=== PATIENT | female | born 1980 | race Caucasian/White ===

== ENCOUNTER 2017-09-17 14:33 | Emergency (ER) | payer MEDICAID ==
--- NOTE | 2017-09-17 14:56 | EDPHY ---
H & P Stated Complaint: DEPRESSION/SUICIDAL THOUGHTS/WANTS DETOX FROM BENZOS AND ETOH - Personal History LMP (Females 10-55): Over 28 Days Ago Current Tetanus/Diphtheria Vaccine: Yes Tetanus Vaccine Date: 2009 - Medical/Surgical History Hx Asthma: No Hx Chronic Respiratory Disease: No Hx Diabetes: No Hx Cardiac Disease: No Hx Renal Disease: No Hx Cirrhosis: No Hx Alcoholism: No Hx HIV/AIDS: No Hx Splenectomy or Spleen Trauma: No Other PMH: surgical- GALLBLADDER, TUBAL LIGATION, LEFT FOOT SURGERY, broke L patella 03/31 - Social History Smoking Status: Former smoker Time Seen by Provider: 09/17/17 14:52 Constitutional: Initial Vital Signs Temperature (C) 37 C 09/17/17 14:38 Heart Rate 102 H 09/17/17 14:38 Respiratory Rate 20 09/17/17 14:38 Blood Pressure 205/121 H 09/17/17 14:38 O2 Sat (%) 99 09/17/17 14:38 O2 Delivery Mode Room Air Allergies/Adverse Reactions: codeine [Codeine] Allergy (Mild, Verified 09/17/17 14:36) Itching Home Medications: Medication Instructions Recorded Effexor 09/17/17 METHADONE HCL 09/17/17 Oxycodone HCl 09/17/17 Xanax 09/17/17 Medical Decision Making ED Course/Re-evaluation: CHIEF COMPLAINT: Depression, medicine withdrawal, suicidal ideation HISTORY OF PRESENT ILLNESS: 37-year-old female who is a longstanding psychiatric history. She is on Effexor XR which she does not believe is helping her and she feels like she is in a deep depression. Additionally, she was on Xanax 1 mg 3 times a day but she has not taken any of that for about a week. She also stopped taking her oxycodone and her methadone. She does have a chronic pain diagnosis. She is brought here by family member because of her deep depression the fact that she thinks her meds are no longer functioning. REVIEW OF SYSTEMS: A 10 point review of systems was performed and is negative with the exception of the elements mentioned in the history of present illness. PHYSICAL EXAM: HR, BP, O2 Sat, RR. Temp noted General Appearance: Alert, well hydrated, appropriate, and non-toxic appearing. Head: Atraumatic without scalp tenderness or obvious injury Eyes: Pupils equal, round, reactive to light and accommodation, EOMI, no trauma , no injection. Ears: Clear bilaterally, no perforation, normal landmarks Nose: Atraumatic, no rhinorrhea, clear. Throat: There is no erythema or exudates, no lesions, normal tonsils, mucus membranes moist. Neck: Supple, 2+ carotid upstroke, nontender, no lymphadenopathy. Respiratory: No retractions, no distress, no wheezes, and no accessory muscle use. Lungs are clear to auscultation bilaterally. Cardiovascular: Regular rate and rhythm, no murmurs, rubs, or gallops. Bilateral carotid, radial, dorsalis pedis, and posterior tibial pulses intact. Good capillary refill all extremities. Gastrointestinal: Abdomen is soft, nontender, non-distended, no masses, no rebound, no guarding, no peritoneal signs. Musculoskeletal: Normal active ROM of all extremities, atraumatic. Neurological: Alert, appropriate, and interactive. The patient has normal DTRs and non-focal cranial nerves, motor, sensory, and cerebellar exam. Skin: No rashes, good turgor, no nodules on palpation. Past medical history: Depression, chronic pain, anxiety Past surgical history: Noncontributory Family history: Noncontributory Social history: Single, employed, does not abuse tobacco drugs or alcohol DIFFERENTIAL DIAGNOSIS: The differential diagnosis for the patient's depression included but was not limited to functional and major depression, situational depression, medication side effect, drugs, and alcohol abuse. MEDICAL DECISION MAKING: This patient has longstanding depression which has worsened acutely. She has also adjusting her own medicines. She somewhat anxious in there but I can't tell if that is because she is off of her benzodiazepines or she is just having underlying anxiety issues. I will give her a small dose of a benzo if she needs it but she does not right now. She states she has no specific suicidal plan however she has thoughts of . She came here voluntarily and would like her medicines to be adjusted and admitted if possible. Final disposition will be up to the psychiatric team of perform screening laboratory studies (Marcel Ruiz) 0322: This patient has been evaluated by mental health. They placed on M1 hold. They will look for dual diagnosis center for substance detox and depression. 0459AM: This patient is requesting something to sleep. She normally takes 10 mg of Ambien nightly. She has not had her Ambien in 2 days. She is requesting specifically Ambien. I have ordered her 10 mg p.o. Ambien. 0553AM: No acute events overnight. Patient provided Ambien for sleep. Patient has been evaluated. Looking for dual diagnosis center for placement. On M1 hold. Here for depression, benzo dependency and narcotic dependency. Patient signed over to Dr. Grove at 7:00 a.m. shift change. (Carlos Snider) 7:00 a.m.-I assumed care of this patient at shift change. She has a history of depression and polysubstance abuse. She is on an M1 hold and mental health is looking for inpatient disposition. 1:00 p.m.-this patient has been accepted to [facility] by Dr. Roland. (Daria Grove) - Data Points Laboratory Results: Laboratory Results 09/17/17 15:05 09/17/17 15:05 Medications Given: Zolpidem Tartrate (Ambien) 10 mg PO HS PRN PRN Reason: Sleep/Insomnia Stop: 03/17/18 04:58 Last Admin: 09/18/17 05:04 Dose: 10 mg Discontinued Medications Diphenhydramine HCl (Benadryl) 25 mg PO EDNOW ONE Stop: 09/17/17 23:32 Last Admin: 09/17/17 23:33 Dose: 25 mg Diphenhydramine HCl (Benadryl) 25 mg PO EDNOW ONE Stop: 09/18/17 03:23 Last Admin: 09/18/17 03:22 Dose: 25 mg Hydroxyzine HCl (Hydroxyzine Hcl) 25 mg PO EDNOW ONE Stop: 09/17/17 20:37 Last Admin: 09/17/17 20:55 Dose: 25 mg Departure - Departure Clinical Impression: Suicidal ideation, Severe major depression, Withdrawal from opioids Withdrawal from benzodiazepine Qualifiers: Complication of substance-induced condition: uncomplicated Qualified Code(s): F13.230 - Sedative, hypnotic or anxiolytic dependence with withdrawal, uncomplicated Condition: Fair Referrals: ALEXUS FENG [Other] - As per Instructions
[2017-09-17 15:15] LABS: PLATELET COUNT 228 10^3/uL (150-400)
[2017-09-17] MEDS ORDERED: hydrOXYzine HCL 25 MG TAB PO ONE (20:36)
[2017-09-17] MEDS ORDERED: diphenhydrAMINE 25 MG CAP PO ONE (23:31)
[2017-09-18] MEDS ORDERED: ONDANSETRON DISINTEGRATING 4 MG TAB ONE (02:33)
[2017-09-18] MEDS ORDERED: diphenhydrAMINE 25 MG CAP PO ONE ×2 (03:21→03:22)
[2017-09-18] MEDS ORDERED: ZOLPIDEM TARTRATE 5 MG TAB PO PRN (04:59)
[2017-09-18 08:00] VITALS: TEMP 97.9
[2017-09-18 12:56] VITALS: BP 141/94; PULSE 94; RESP 18; O2SAT 99
== END 2017-09-18 13:47 | disposition short-term general hospital (02) ==
DX: F32.2 Major depressive disorder, single episode, severe without psychotic features (principal); R45.851 Suicidal ideations; F13.230 Sedative, hypnotic or anxiolytic dependence with withdrawal, uncomplicated; F11.23 Opioid dependence with withdrawal; Z87.891 Personal history of nicotine dependence
CPT/HCPCS: 80305; G0480